=== PATIENT | male | born 1995 | race Caucasian/White ===

== ENCOUNTER 2018-04-22 21:31 | Emergency (ER) | payer SELFPAY ==
[~2018-04-22] VITALS: Ht 175.3 cm; Wt 77.3 kg
[2018-04-22 21:48] VITALS: BP 145/93
== END 2018-04-23 00:22 | disposition home or self-care (01) ==
LOC: ER 21:32
DX: S93.402A Sprain of unspecified ligament of left ankle, initial encounter (principal); X58.XXXA Exposure to other specified factors, initial encounter; Y93.55 Activity, bike riding; Y92.89 Other specified places as the place of occurrence of the external cause; Y99.8 Other external cause status
CPT/HCPCS: 73610; 99283